=== PATIENT | female | born 1975 | race Caucasian/White ===

== ENCOUNTER 2017-03-14 10:57 | Outpatient (CLI) | payer OTHER ==
[2015-07-19 15:38] VITALS: BP 147/97
[2017-03-14 11:56] LABS: eGFR (African) > 60; eGFR (Non-African) > 60
== END 2017-03-14 11:00 ==
LOC: LAB 10:57
PROVIDERS: ATTEND Family Medicine
DX: E03.9 Hypothyroidism, unspecified (principal); E78.2 Mixed hyperlipidemia; R56.9 Unspecified convulsions
CPT/HCPCS: 36415; 80053; 80061; 80177; 84443

== ENCOUNTER 2018-05-22 08:44 | Outpatient (CLI) | payer OTHER ==
[2015-07-19 15:38] VITALS: BP 147/97
[2018-05-22 09:31] LABS: eGFR (Non-African) > 60
== END 2018-05-22 08:46 ==
LOC: LAB 08:44
PROVIDERS: ATTEND Family Medicine
DX: E03.9 Hypothyroidism, unspecified (principal); E78.2 Mixed hyperlipidemia; R56.9 Unspecified convulsions
CPT/HCPCS: 36415; 80053; 80061; 80177; 84443

== ENCOUNTER 2019-06-06 11:20 | Outpatient (CLI) | payer OTHER ==
[2015-07-19 15:38] VITALS: BP 147/97
[2019-06-06 12:33] LABS: eGFR (Non-African) > 60
[2019-06-06 12:34] LABS: HDL 52 mg/dL (>40)
== END 2019-06-06 11:25 ==
LOC: LAB 11:20
PROVIDERS: ATTEND Family Medicine
DX: E78.2 Mixed hyperlipidemia (principal); E03.9 Hypothyroidism, unspecified; G40.909 Epilepsy, unspecified, not intractable, without status epilepticus
CPT/HCPCS: 36415; 80053; 80061; 80177; 84443